=== PATIENT | female | born 1995 | race Caucasian/White ===

== ENCOUNTER 2020-10-21 20:15 | Emergency (ER) | payer MEDICAID ==
[~2020-10-21] VITALS: Ht 154.9 cm; Wt 65.8 kg
[2020-10-21 20:57] VITALS: BP 141/80
[2020-10-21 22:25] VITALS: BP 120/78
--- NOTE | 2020-10-21 22:25 | NUR ---
Patient discharged with v/s stable. Written and verbal after care instructions given and explained. Patient verbalized understanding. Ambulatory with steady gait. All questions addressed prior to discharge. Advised to follow up with PMD.
== END 2020-10-21 22:24 | disposition home or self-care (01) ==
LOC: MED 20:15
DX: F43.0 Acute stress reaction (principal); R07.9 Chest pain, unspecified; R06.02 Shortness of breath
CPT/HCPCS: 93005; 99283